=== PATIENT | female | born 1955 | race Caucasian/White ===

== ENCOUNTER 2016-11-08 07:14 | Day surgery (SDC) | payer OTHER ==
[2016-11-08] MEDS ORDERED: SIMETHICONE 40 MG/0.6 ML ML ONE (07:34)
[2016-11-08] MEDS ORDERED: MEPERIDINE HCL/PF 50 MG/ML AMP ONE (07:35)
[2016-11-08] MEDS: MIDAZOLAM HCL 5 MG/5 ML VIAL ONE ×4 (08:09→08:18)
[2016-11-08 10:04] VITALS: BP 112/82; PULSE 66; RESP 16
== END 2016-11-08 09:25 | disposition home or self-care (01) ==
LOC: SDS 07:14
PROVIDERS: ATTEND Internal Medicine Gastroenterology
DX: Z12.11 Encounter for screening for malignant neoplasm of colon (principal); K64.8 Other hemorrhoids; E11.9 Type 2 diabetes mellitus without complications; E03.9 Hypothyroidism, unspecified
CPT/HCPCS: 45378; 82962; J2175; J2250; J7030